=== PATIENT | female | born 1960 | race Caucasian/White ===

== ENCOUNTER 2017-12-01 22:12 | Emergency (ER) | payer BC ==
[~2017-12-01] VITALS: Ht 162.6 cm; Wt 80.0 kg
[2017-12-01 22:45] VITALS: BP 147/74; PULSE 99; RESP 20; TEMP 99.7; O2SAT 99
[2017-12-01] MEDS ORDERED: SODIUM CHLOR 0.9% 1000 ML INJ 1,000 ML IV SCH (23:57)
[2017-12-02] MEDS ORDERED: SODIUM CHLORIDE 0.9% FLUSH 10 ML FLUSH IV FLUSH PRN
[2017-12-02] MEDS ORDERED: ONDANSETRON ODT 4 MG TAB PO ONE
--- NOTE | 2017-12-02 00:03 | PD ---
HPI Chief Complaint: Abdominal Pain Time Seen by Provider: 23:57 Travel History International Travel<30 days: No Contact w/Intl Traveler<30days: No Traveled to known affect area: No History of Present Illness HPI This is a Marshallese-speaking patient who prefers that her translate for her. 57-year-old female with history of diabetes and hypertension complains of myalgias. Symptoms started 5 days ago. She is complaining of whole body pain in the muscles. Pain is an aching pain which is constant, no obvious aggravating or relieving factors. She has not checked her temperature. During review of systems she does note generalized abdominal pain as well as a sore throat and nausea. Review of systems is otherwise negative. She denies headache, blurred vision, vomiting, cough, congestion, rash, recent travel, diarrhea, constipation. She has no other complaints at this time. [facility] Past Medical History Immunizations Current: Yes Tetanus Vaccination: Unknown Influenza Vaccination: No ?: Unknown Social History Alcohol Use: No Tobacco Use: No Substance Use: No Allergies-Medications (Allergen,Severity, Reaction): Coded Allergies: No Known Allergies (Unverified , 12/02/17) Reported Meds & Prescriptions Reported Meds & Active Scripts Active Reported Losartan (Losartan Potassium) 25 Mg Tab 25 Mg PO DAILY Metformin (Metformin HCl) 500 Mg Tab 500 Mg PO DAILY With a meal Review of Systems Except as stated in HPI: all other systems reviewed are Neg Physical Exam Narrative GENERAL: Well-developed well-nourished female no acute distress SKIN: Warm and dry. HEAD: Atraumatic. Normocephalic. EYES: Pupils equal and round. No scleral icterus. No injection or drainage. ENT: No nasal bleeding or discharge. Mucous membranes pink and moist. Tonsillar hypertrophy is noted. No oral pharyngeal erythema or exudate. NECK: Trachea midline. No JVD. No lymphadenopathy. Neck supple with full range of motion. CARDIOVASCULAR: Regular rate and rhythm. No murmur appreciated. RESPIRATORY: No accessory muscle use. Clear to auscultation. Breath sounds equal bilaterally. GASTROINTESTINAL: Abdomen soft, generalized mild tenderness to palpation without guarding. A surgical scar is noted in the right upper quadrant. MUSCULOSKELETAL: No obvious deformities. No clubbing. No cyanosis. No edema. NEUROLOGICAL: Awake and alert. No obvious cranial nerve deficits. Motor grossly within normal limits. Normal speech. Data Data Last Documented VS Vital Signs Date Time Temp Pulse Resp B/P (MAP) Pulse Ox O2 Delivery O2 Flow Rate FiO2 12/02/17 06:21 12/02/17 02:18 16 12/02/17 02:12 98.4 85 100 Room Air Orders Orders Complete Blood Count With Diff (12/01/17 23:57) Comprehensive Metabolic Panel (12/01/17 23:57) Lipase (12/01/17 23:57) Lactic Acid (12/01/17 23:57) Urinalysis - C+S If Indicated (12/01/17 23:57) Iv Access Insert/Monitor (12/01/17 23:57) Ecg Monitoring (12/01/17 23:57) Oximetry (12/01/17 23:57) Sodium Chloride 0.9% Flush (Ns Flush) (12/02/17 00:00) Electrocardiogram (12/01/17 23:57) Chest, Single Ap (12/01/17 23:57) Ondansetron Odt (Zofran Odt) (12/02/17 00:00) Group A Rapid Strep Screen (12/01/17 23:57) Sodium Chlor 0.9% 1000 Ml Inj (Ns 1000 M (12/01/17 23:57) Influenzae A/B Antigen (12/01/17 23:57) Ct Abd/Pel W Iv Contrast(Rout) (12/02/17 ) Strep Culture (Group A) (12/02/17 00:15) Iohexol 350 Inj (Omnipaque 350 Inj) (12/02/17 01:18) Ct Abd/Pel W/O Iv Contrast (12/02/17 ) Morphine Inj (Morphine Inj) (12/02/17 02:00) Metoclopramide Inj (Reglan Inj) (12/02/17 02:00) Oral Contrast - Adult (12/02/17 01:55) Diatrizoate Liq ( Gastroview Liq) (12/02/17 01:59) Acetaminophen (Tylenol) (12/02/17 02:15) Gc And Chlamydia Pcr (12/02/17 04:16) Wet Prep Profile (12/02/17 04:16) Us Pelvis Comp W Transvaginal (12/02/17 ) Ed Discharge Order (12/02/17 06:17) Labs Laboratory Tests Test 12/02/17 00:15 12/02/17 04:35 White Blood Count 5.3 TH/MM3 Red Blood Count 4.69 MIL/MM3 Hemoglobin 13.8 GM/DL Hematocrit 41.0 % Mean Corpuscular Volume 87.3 FL Mean Corpuscular Hemoglobin 29.4 PG Mean Corpuscular Hemoglobin Concent 33.7 % Red Cell Distribution Width 13.0 % Platelet Count 184 TH/MM3 Mean Platelet Volume 10.0 FL Neutrophils (%) (Auto) 69.2 % Lymphocytes (%) (Auto) 22.1 % Monocytes (%) (Auto) 6.8 % Eosinophils (%) (Auto) 1.4 % Basophils (%) (Auto) 0.5 % Neutrophils # (Auto) 3.6 TH/MM3 Lymphocytes # (Auto) 1.2 TH/MM3 Monocytes # (Auto) 0.4 TH/MM3 Eosinophils # (Auto) 0.1 TH/MM3 Basophils # (Auto) 0.0 TH/MM3 CBC Comment DIFF FINAL Differential Comment Urine Color YELLOW Urine Turbidity HAZY Urine pH 5.0 Urine Specific [place] 1.018 Urine Protein NEG mg/dL Urine Glucose (UA) NEG mg/dL Urine Ketones NEG mg/dL Urine Occult Blood NEG Urine Nitrite NEG Urine Bilirubin NEG Urine Urobilinogen LESS THAN 2 mg/dL Urine Leukocyte Esterase NEG Urine RBC 3 /hpf Urine WBC 3 /hpf Urine Squamous Epithelial Cells 2 /hpf Urine Bacteria RARE /hpf Urine Hyaline Casts 1 /lpf Urine Mucus FEW /lpf Microscopic Urinalysis Comment CULT NOT INDICATED Blood Urea Nitrogen 13 MG/DL Creatinine 0.80 MG/DL Random Glucose 151 MG/DL Total Protein 7.6 GM/DL Albumin 3.7 GM/DL Calcium Level 8.1 MG/DL Alkaline Phosphatase 120 U/L Aspartate Amino Transf (AST/SGOT) 45 U/L Alanine Aminotransferase (ALT/SGPT) 42 U/L Total Bilirubin 0.3 MG/DL Sodium Level 140 MEQ/L Potassium Level 4.2 MEQ/L Chloride Level 109 MEQ/L Carbon Dioxide Level 22.8 MEQ/L Anion Gap 8 MEQ/L Estimat Glomerular Filtration Rate 74 ML/MIN Lactic Acid Level 1.5 mmol/L Lipase 84 U/L Clue Cells (Wet Prep) NONE SEEN Vaginal Trichomonas (Wet Prep) NONE SEEN Vaginal Yeast (Wet Prep) NONE SEEN Chlamydia trachomatis DNA (PCR) NOT DETECTED Neisseria gonorrhoeae DNA (PCR) NOT DETECTED MDM Medical Decision Making Medical Screen Exam Complete: Yes Emergency Medical Condition: Yes Medical Record Reviewed: Yes Interpretation(s) EKG reveals sinus rhythm, incomplete right bundle branch block. No acute ischemic changes. Differential Diagnosis Viral syndrome, myalgias, rheumatologic illness, pharyngitis, appendicitis, colitis, diverticulitis, cholecystitis, UTI, occult pneumonia Narrative Course 57-year-old female 5 days of generalized myalgias, likely low-grade fevers as her temperature is 99.7 in triage. Review of systems she is complaining of some abdominal pain and a sore throat. On examination she has mild generalized tenderness to palpation of the abdomen. She has a surgical scar in the right upper quadrant, likely cholecystectomy in the past. She has tonsillar hypertrophy but not exudate or erythema. Will check lab work, chest x-ray, rapid strep screen, CT abdomen and pelvis. CBC is unremarkable. CMP reveals calcium of 8.1, glucose 151 otherwise unremarkable. Lactic acid is 1.5. Urinalysis is unremarkable. Rapid strep screen and influenza antigen are negative. Chest x-ray is normal. CT abdomen pelvis reveals CONCLUSION: 1. Some inflammation in the right inguinal region with reactive type lymph nodes of uncertain etiology. I don't see any evidence of appendicitis. Do not see a normal appendix I discussed with the reading radiologist who reports that he cannot see the appendix but she does have some inflammation in the right inguinal region. The plan is to do a CT of the abdomen pelvis with oral contrast bolus and an attempt to visualize the appendix and rule out appendicitis as she does have right lower quadrant tenderness. Examination of the skin reveals no evidence of cutaneous infectious process in the inguinal region or cutaneously in the legs or feet. No evidence of diabetic foot ulcers or cellulitis or peripheral vascular disease. Repeat CT imaging reveals persistent lymph node inflammation in the right inguinal canal. Radiologist notes that its closest to the position of the right ovary and correlate for tubo-ovarian abscess. The appendix was visualized and appears normal. The patient reports that she is sexually active only with her . She consented to a pelvic examination which was performed in the presence of a female nurse. Pelvic examination revealed a small amount of thick white vaginal discharge. There is mild bilateral adnexal tenderness. No cervical motion tenderness. Pelvic ultrasound has been ordered. GC probe and wet prep have been ordered. Wet prep is normal. Pelvic ultrasound reveals minimal fluid in the lower uterine segment. Neither ovary definitively enlarged. No evidence of a tubo- ovarian abscess. I suspect that her symptoms are secondary to a viral syndrome. At this point in time the plan will be to discharge the patient have her follow-up with her primary care physician and return for any new or worsening symptoms. All questions were answered. She is stable for discharge. Diagnosis Primary Impression: Myalgia Additional Impression: Abdominal pain Additional Instructions: Stay well hydrated and well-nourished, get plenty of rest. Take Tylenol Motrin as needed for pain per dosing instructions on the bottle. Follow-up with primary care physician in 3-4 days. Return for any new or worsening symptoms. Med/Other Pt SpecificInfo: No Change to Meds Disposition: 01 DISCHARGE HOME Condition: Stable Gonzalo Akins Dec 02, 2017 00:03
[2017-12-02 00:14] VITALS: RESP 16
[2017-12-02 00:26] LABS: AUTOMATED NEUTROPHIL # 3.6 TH/MM3 (1.8-7.7); BASOPHIL % 0.5 % (0.0-2.0); EOSINOPHIL # 0.1 TH/MM3 (0-0.4); EOSINOPHIL % 1.4 % (0.0-4.0); HEMOGLOBIN 13.8 GM/DL (11.6-15.3); LYMPH % 22.1 % (9.0-44.0); LYMPHOCYTE # 1.2 TH/MM3 (1.0-4.8); MEAN CELL VOLUME 87.3 FL (80.0-100.0); MEAN CORPUSCULAR HEMOGLOBIN 29.4 PG (27.0-34.0); MEAN CORPUSCULAR HGB CONC 33.7 % (32.0-36.0); MONO % 6.8 % (0.0-8.0); MONOCYTE # 0.4 TH/MM3 (0-0.9); NEUT % 69.2 % (16.0-70.0); PLATELET COUNT 184 TH/MM3 (150-450); RED BLOOD COUNT 4.69 MIL/MM3 (4.00-5.30); WHITE BLOOD COUNT 5.3 TH/MM3 (4.0-11.0)
[2017-12-02 00:35] LABS: BACTERIA, URINE RARE /hpf; BILIRUBIN, URINE NEG (NEG); BLOOD, URINE NEG (NEG); GLUCOSE,URINE NEG (NEG); HYALINE CAST, URINE 1 /lpf (RARE); KETONE, URINE NEG (NEG); MUCUS URINE FEW /lpf (OCC); NITRITE,URINE NEG (NEG); SQUAMOUS EPITHELIAL CELL URINE 2 /hpf (0-5); URINE COLOR YELLOW (YELLW/STRAW); URINE LEUKOCYTE ESTERASE NEG (NEG)
[2017-12-02] MEDS ORDERED: METF500T PO (00:36)
[2017-12-02] MEDS ORDERED: LOSA25TA PO (00:36)
--- NOTE | 2017-12-02 00:36 | RADRPT ---
EXAM DATE: 12/02/2017 12:23 AM EDT AGE/SEX: 57 years / Female INDICATIONS: Fever. CLINICAL DATA: This is the patient's initial encounter. Patient reports that signs and symptoms have been present for 1 day and indicates a pain score of 2/10. MEDICAL/SURGICAL HISTORY: None. None. COMPARISON: No prior exams available for comparison. FINDINGS: A single AP view of the chest demonstrates the lungs to be symmetrically aerated without evidence of mass, infiltrate or effusion. The cardiomediastinal contours are unremarkable. Osseous structures a re intact. CONCLUSION: Negative examination. Electronically signed by: Jj Estrella MD 12/02/2017 12:35 AM EDT
[2017-12-02 00:46] LABS: ALBUMIN 3.7 GM/DL (3.4-5.0); ALKALINE PHOSPHATASE 120 U/L (45-117); ALT (GPT) 42 U/L (10-53); AST (GOT) 45 U/L (15-37); BICARBONATE 22.8 MEQ/L (21.0-32.0); BLOOD UREA NITROGEN 13 MG/DL (7-18); CALCIUM 8.1 MG/DL (8.5-10.1); CHLORIDE 109 MEQ/L (98-107); GLOMERULAR FILTRATION RATE 74 ML/MIN (>89); GLUCOSE,RANDOM 151 MG/DL (74-106); SODIUM (NA) 140 MEQ/L (136-145); TOTAL BILIRUBIN ADULT 0.3 MG/DL (0.2-1.0); TOTAL PROTEIN 7.6 GM/DL (6.4-8.2)
--- NOTE | 2017-12-02 01:00 | PD ---
Data Data Last Documented VS Vital Signs Date Time Temp Pulse Resp B/P (MAP) Pulse Ox O2 Delivery O2 Flow Rate FiO2 12/02/17 00:14 16 12/01/17 22:45 99.7 99 147/74 (98) 99 Orders Orders Complete Blood Count With Diff (12/01/17 23:57) Comprehensive Metabolic Panel (12/01/17 23:57) Lipase (12/01/17 23:57) Lactic Acid (12/01/17 23:57) Urinalysis - C+S If Indicated (12/01/17 23:57) Iv Access Insert/Monitor (12/01/17 23:57) Ecg Monitoring (12/01/17 23:57) Oximetry (12/01/17 23:57) Sodium Chloride 0.9% Flush (Ns Flush) (12/02/17 00:00) Electrocardiogram (12/01/17 23:57) Chest, Single Ap (12/01/17 23:57) Ondansetron Odt (Zofran Odt) (12/02/17 00:00) Group A Rapid Strep Screen (12/01/17 23:57) Sodium Chlor 0.9% 1000 Ml Inj (Ns 1000 M (12/01/17 23:57) Influenzae A/B Antigen (12/01/17 23:57) Ct Abd/Pel W Iv Contrast(Rout) (12/02/17 ) Strep Culture (Group A) (12/02/17 00:15) Labs Laboratory Tests Test 12/02/17 00:15 White Blood Count 5.3 TH/MM3 Red Blood Count 4.69 MIL/MM3 Hemoglobin 13.8 GM/DL Hematocrit 41.0 % Mean Corpuscular Volume 87.3 FL Mean Corpuscular Hemoglobin 29.4 PG Mean Corpuscular Hemoglobin Concent 33.7 % Red Cell Distribution Width 13.0 % Platelet Count 184 TH/MM3 Mean Platelet Volume 10.0 FL Neutrophils (%) (Auto) 69.2 % Lymphocytes (%) (Auto) 22.1 % Monocytes (%) (Auto) 6.8 % Eosinophils (%) (Auto) 1.4 % Basophils (%) (Auto) 0.5 % Neutrophils # (Auto) 3.6 TH/MM3 Lymphocytes # (Auto) 1.2 TH/MM3 Monocytes # (Auto) 0.4 TH/MM3 Eosinophils # (Auto) 0.1 TH/MM3 Basophils # (Auto) 0.0 TH/MM3 CBC Comment DIFF FINAL Differential Comment Urine Color YELLOW Urine Turbidity HAZY Urine pH 5.0 Urine Specific [place] 1.018 Urine Protein NEG mg/dL Urine Glucose (UA) NEG mg/dL Urine Ketones NEG mg/dL Urine Occult Blood NEG Urine Nitrite NEG Urine Bilirubin NEG Urine Urobilinogen LESS THAN 2 mg/dL Urine Leukocyte Esterase NEG Urine RBC 3 /hpf Urine WBC 3 /hpf Urine Squamous Epithelial Cells 2 /hpf Urine Bacteria RARE /hpf Urine Hyaline Casts 1 /lpf Urine Mucus FEW /lpf Microscopic Urinalysis Comment CULT NOT INDICATED Blood Urea Nitrogen 13 MG/DL Creatinine 0.80 MG/DL Random Glucose 151 MG/DL Total Protein 7.6 GM/DL Albumin 3.7 GM/DL Calcium Level 8.1 MG/DL Alkaline Phosphatase 120 U/L Aspartate Amino Transf (AST/SGOT) 45 U/L Alanine Aminotransferase (ALT/SGPT) 42 U/L Total Bilirubin 0.3 MG/DL Sodium Level 140 MEQ/L Potassium Level 4.2 MEQ/L Chloride Level 109 MEQ/L Carbon Dioxide Level 22.8 MEQ/L Anion Gap 8 MEQ/L Estimat Glomerular Filtration Rate 74 ML/MIN Lactic Acid Level 1.5 mmol/L Lipase 84 U/L MDM Supervised Visit with VICENTE: Yes Narrative Course The history, exam, and medical decision-making in the associated mid-level provider note were completed with my assistance. I reviewed and agree with the findings presented. I attest that I had a [id number] encounter with the patient on the same day, and personally performed and documented my assessment and findings in the medical record. *My assessment and Findings: 57-year-old woman with diffuse body pains, subjective chills, and some abdominal tenderness times a day. On exam she has some mild abdominal discomfort. White count labs are all normal. Will check a CT of the abdomen and pelvis. She may be coming down with a viral syndrome. She looks uncomfortable but not unwell. At the CT is normal I think she will be safe for outpatient follow-up and return for any worsening symptoms. Jj Butcher MD Dec 02, 2017 01:00
[2017-12-02] MEDS ORDERED: IOHEXOL 350 MG/ML 10 ML VIAL (for RAD DIAG) IVCONTRAST ONE (01:18)
--- NOTE | 2017-12-02 01:32 | RADRPT ---
EXAM DATE: 12/02/2017 1:20 AM EDT AGE/SEX: 57 years / Female INDICATIONS: Abdomen pain past week. CLINICAL DATA: This is the patient's initial encounter. Patient reports that signs and symptoms have been present for 1 week and indicates a pain score of 7/10. MEDICAL/SURGICAL HISTORY: Hypertension. Diabetes mellitus type II. . ORAL CONTRAST: No oral contrast ingested. RADIATION DOSE: 8.76 CTDI (mGy) COMPARISON: No prior exams available for comparison. TECHNIQUE: Multiple contiguous axial images were obtained through the abdomen and pelvis following b olus infusion of 95 ml Omnipaque 350 (iohexol) nonionic water-soluble contrast as a single exam dos e. No oral contrast ingested. Using automated exposure control and adjustment of the mA and/or kV ac cording to patient size, radiation dose was kept as low as reasonably achievable to obtain optimal di agnostic quality images. DICOM format image data is available electronically for review and comparis on. FINDINGS: Lower Lungs: The visualized lower lungs are clear. Liver: The liver has a homogeneous density without space-occupying lesion. There is no dilation of th e biliary tree. Spleen: Homogeneous density without enlargement. Pancreas: Unremarkable without mass or calcification. Kidneys: Normal in size and shape. No evidence of mass or hydronephrosis. Adrenal Glands: Unremarkable. Aorta: The aorta and proximal iliac vessels are grossly unremarkable without aneurysmal dilation. Bowel/Mesentery: The bowel loops are grossly unremarkable. The cecum and sigmoid colon have a normal configuration. Abdominal Wall: Intact. Retroperitoneum: No evidence of adenopathy in the retrocrural, para-aortic, or deep pelvic regions. Bladder: Contours are smooth. Reproductive Organs: No abnormal masses or calcifications seen. Inguinal: There are some lymph nodes in the right inguinal region including the obturator internus c tyra in the external iliac chain. There are number of inflamed lymph nodes and some low-grade fluid a nd inflammation. I don't clearly see the appendix. Bony Structures: Unremarkable. CONCLUSION: 1. Some inflammation in the right inguinal region with reactive type lymph nodes of uncertain etiolo gy. I don't see any evidence of appendicitis. Do not see a normal appendix Electronically signed by: Jj Estrella MD 12/02/2017 1:30 AM EDT
[2017-12-02] MEDS ORDERED: DIATRIZOATE MEGLUM/DIATRIZOATE SOD 9 ML CUP ONE (01:59)
[2017-12-02] MEDS ORDERED: MORPHINE SULFATE 4 MG/ML INJ IV PUSH ONE (02:00)
[2017-12-02] MEDS ORDERED: METOCLOPRAMIDE HCL 10 MG/2 ML VIAL IV PUSH ONE (02:00)
[2017-12-02 02:12] VITALS: BP 120/62; PULSE 85; RESP 16; TEMP 98.4; O2SAT 100
[2017-12-02] MEDS ORDERED: ACETAMINOPHEN 325 MG TAB PO ONE (02:15)
[2017-12-02 02:18] VITALS: RESP 16
--- NOTE | 2017-12-02 04:12 | RADRPT ---
EXAM DATE: 12/02/2017 4:07 AM EDT AGE/SEX: 57 years / Female INDICATIONS: Abdomen pain. Follow up scan with oral contrast. CLINICAL DATA: This is the patient's initial encounter. Patient reports that signs and symptoms have been present for 2 weeks and indicates a pain score of 8/10. MEDICAL/SURGICAL HISTORY: Hypertension. Diabetes mellitus type II. . RADIATION DOSE: 15.04 CTDI (mGy) [place] [facility] [place]/02/[place]. . TECHNIQUE: Multiple contiguous axial images were obtained through the abdomen. Images were obtained using multiple row detector helical technique. Using automated exposure control and adjustment of the mA and/or kV according to patient size, radiation dose was kept as low as reasonably achievable to o btain optimal diagnostic quality images. DICOM format image data is available electronically for rev iew and comparison. FINDINGS: The study was repeated with oral contrast. The kidneys appear to be functioning. There again are note d the lymph nodes throughout the right inguinal canal and some inflammation. The right ovary is the e picenter of the area correlate for tubo-ovarian abscess I believe I see the appendix on the coronal i mages and it is quite small and above the area of inflammation.. CONCLUSION: 1. The inflammation lymph nodes around the right inguinal canal remain. Its close to the position of the right ovary correlate for tubo-ovarian abscess. The appendix appears to be normal and quite smal l Electronically signed by: Jj Estrella MD 12/02/2017 4:11 AM EDT
--- NOTE | 2017-12-02 06:07 | RADRPT ---
EXAM DATE: 12/02/2017 5:51 AM EDT AGE/SEX: 57 years / Female INDICATIONS: Pelvic pain. CLINICAL DATA: This is the patient's initial encounter. Patient reports that signs and symptoms have been present for 1 day and indicates a pain score of 8/10. MEDICAL/SURGICAL HISTORY: Hypertension. Diabetes. section. COMPARISON: [facility] [place] ABD[place] & [place]EL[place]/O CONTRAST, 12/02/2017. . MEASUREMENTS: Uterus:__6.3 x 2.7 x 1.7 cm Endometrial Stripe:__2 mm Right Ovary:__ 3.4 x 4.0 x 2.8 cm Left Ovary:__ 4.4 x 4.5 x 2.4 cm FINDINGS: Uterus: The myometrium has homogeneous echotexture without mass. Right Ovary: The suspected right ovary measures 1.7 x 1.0 x 1.6 cm. Fluid-filled tubular structure s egment adjacent to the ovary could be a fluid-filled loop of small bowel Left Ovary: Not clearly identified. No concerning masses seen Other: No significant free fluid. CONCLUSION: 1. Minimal fluid in the lower uterine segment. Neither ovary definitively enlarged. Electronically signed by: Jj Estrella MD 12/02/2017 6:06 AM EDT
--- NOTE | 2017-12-02 16:46 | EKG ---
Date Performed: 12/02/2017 Time Performed: 00:24:26 PTAGE: 57 years EKG: Sinus rhythm INDETERMINATE AXIS INCOMPLETE RIGHT BUNDLE BRANCH BLOCK BORDERLINE ECG NO PREVIOUS TRACING DOCTOR: Jennifer Neri Interpretating Date/Time 12/02/2017 16:44:31
== END 2017-12-02 06:35 | disposition home or self-care (01) ==
LOC: NEPD 22:12
DX: M79.1 Myalgia (principal); R10.84 Generalized abdominal pain; R11.0 Nausea; R50.9 Fever, unspecified; J02.9 Acute pharyngitis, unspecified; R94.31 Abnormal electrocardiogram [ECG] [EKG]; E11.9 Type 2 diabetes mellitus without complications; I10 Essential (primary) hypertension; Z79.84 Long term (current) use of oral hypoglycemic drugs; Z79.899 Other long term (current) drug therapy
CPT/HCPCS: 71045; 74176; 74177; 76830; 76856; 80053; 81001; 83605; 83690; 85025; 87081; 87210; 87491; 87591; 87804; 87880; 93005; 96361; 96374; 96375; 99285; J2270; J2765; J7030; Q9963; Q9967